=== PATIENT | female | born 1995 | race Caucasian/White ===

== ENCOUNTER 2018-09-21 22:54 | Outpatient (CLI) | payer MEDICAID | END 2018-09-21 22:55 | disposition critical access hospital (66) | LOC: EMS 22:54 | PROVIDERS: ATTEND Surgery | DX: R06.00 Dyspnea, unspecified (principal); R50.9 Fever, unspecified | CPT/HCPCS: A0425; A0427 ==

== ENCOUNTER 2018-09-21 22:57 | Emergency (ER) | payer SELFPAY ==
--- NOTE | 2018-09-21 23:00 | ED Physician Documentation ---
PD HPI DYSPNEA - Stated complaint Stated Complaint: SOA - History obtained from History obtained from: Patient, EMS - History of Present Illness Timing - onset: Enter time (21:00) Timing - details: Gradual onset Pain level now: 0 Improved by: Other (no ameliorating factors) Worsened by: Other (no exacerbating factors) Associated symptoms: No: Fever Recently seen: Not recently seen - Additional information Additional information: c/o dyspnea for several months but worse since 9 PM tonight. BIBA, given albuterol neb en route without improvement. Medics report that patient had clear lungs bilaterally even prior to neb administration and 100% pulse ox room air. Patient says she has seen a doctor for these symptoms, although this doctor practices near [place]. She moved to [facility] approximately 3 weeks ago from [place] where she had been for several months; thus, patient indicates she hasn't seen this doctor since before she moved to [place]. Review of Systems Constitutional: denies: Fever, Chills, Sweats Cardiac: denies: Chest pain / pressure, Palpitations Respiratory: reports: Dyspnea. denies: Cough PD PAST MEDICAL HISTORY - Past Medical History Past Medical History: No - Present Medications Home Medications: Ambulatory Orders Medication Instructions Recorded Confirmed Albuterol 1 unit PO PRN PRN 09/21/18 09/21/18 Fluticasone 44 Mcg [Flovent] 1 unit PO PRN PRN 09/21/18 09/21/18 - Allergies Allergies/Adverse Reactions: Allergies Allergy/AdvReac Type Severity Reaction Status Date / Time No Known Drug Allergies Allergy Verified 09/21/18 23:06 - Living Situation Living Arrangement: reports: At home PD ED PE NORMAL - Vitals Vital signs reviewed: Yes - General General: Alert and oriented X 3, No acute distress, Well developed/nourished - HEENT HEENT: Moist mucous membranes - Neck Neck: Supple, no meningeal sign - Cardiac Cardiac: RRR, No murmur, No gallop, No rub - Respiratory Respiratory: No respiratory distress, Clear bilaterally - Abdomen Abdomen: Soft, Non tender - Derm Derm: Normal color, Warm and dry - Extremities Extremities: No edema Results - Vitals Vitals: Vital Signs - 24 hr 09/21/18 09/22/18 22:59 00:57 Temperature 37.2 C 36.7 C Heart Rate 86 82 Respiratory 18 16 Rate Blood Pressure 114/69 101/70 O2 Saturation 99 99 Oxygen O2 Source Room air - Labs Labs: Laboratory Tests 09/21/18 09/21/18 23:50 23:50 WBC 4.5 L RBC 3.74 L Hgb 11.9 L Hct 34.7 L MCV 92.8 MCH 31.8 H MCHC 34.3 RDW 11.9 L Plt Count 234 MPV 9.3 Neut # (Auto) 2.6 Lymph # (Auto) 1.3 L [place] # (Auto) 0.4 Eos # (Auto) 0.1 Baso # (Auto) 0.0 Absolute Nucleated RBC 0.00 Nucleated RBC % 0.0 Sodium 142 Potassium 3.1 L Chloride 109 Carbon Dioxide 20 L Anion Gap 13.0 BUN 5 L Creatinine 0.6 Estimated GFR (MDRD) 125 Glucose 105 H Calcium 9.8 - Rads (name of study) chest xray Radiology: Prelim report reviewed, See rad report PD MEDICAL DECISION MAKING - ED course Complexity details: reviewed results, re-evaluated patient, considered differential, d/w patient Departure - Departure Disposition: 01 Home, Self Care Clinical Impression: Dyspnea, Hypokalemia Condition: Good Health Concerns: shortness of breath Plan of Treatment: return if worse, follow up with PCP Care Goals: prevention of recurrence Assessment: see diagnosis Instructions: ED Dyspnea Shortness of Breath, ED Potassium Deficiency Follow-Up: [facility] [Provider Group] [facility] [Provider Group] Discharge Date/Time: 09/22/18 01:02
[2018-09-21 23:55] LABS: BASOPHILS % (AUTO) 0.9 %; EOSINOPHILS # (AUTO) 0.1 10^3/uL (0.0-0.7); EOSINOPHILS % (AUTO) 1.8 %; HGB - HEMOGLOBIN 11.9 g/dL (12.0-16.0); LYMPHOCYTES # (AUTO) 1.3 10^3/uL (1.5-3.5); LYMPHOCYTES % (AUTO) 29.7 %; MEAN CORPUSCULAR HEMOGLOBIN 31.8 pg (27.0-31.0); MEAN CORPUSCULAR HGB CONC 34.3 g/dL (32.0-36.0); MEAN CORPUSCULAR VOLUME 92.8 fL (81.0-99.0); MEAN PLATELET VOLUME 9.3 fL (7.9-10.8); MONOCYTES # (AUTO) 0.4 10^3/uL (0.0-1.0); MONOCYTES % (AUTO) 9.4 %; NEUTROPHILS # (AUTO) 2.6 10^3/uL (1.5-6.6); PLT - PLATELET COUNT 234 10^3/uL (130-450); RED BLOOD COUNT 3.74 10^6/uL (4.20-5.40); RED CELL DISTRIBUTION WIDTH 11.9 % (12.0-15.0); WHITE BLOOD COUNT 4.5 x10^3/uL (4.8-10.8)
[2018-09-22 00:04] LABS: CALCIUM 9.8 mg/dL (8.5-10.3); CREATININE 0.6 mg/dL (0.4-1.0)
--- NOTE | 2018-09-22 00:22 | XRAY Report ---
Reason: dyspnea Procedure Date: 09/22/2018 Accession Number: [id number] / [id number] Procedure: XR - Chest 2 View X-Ray CPT Code: 28937 FULL RESULT: EXAM: CHEST RADIOGRAPHY EXAM DATE: 09/22/2018 12:02 AM. CLINICAL HISTORY: Dyspnea. COMPARISON: None. TECHNIQUE: 2 views. FINDINGS: Lungs/Pleura: No alveolar consolidation or pleural effusion seen. No pneumothorax. Mediastinum: Heart and mediastinal contours are unremarkable. Other: Mild scoliosis. IMPRESSION: 1. No acute abnormality seen in the chest. [facility]
[2018-09-22] MEDS ORDERED: POTASSIUM CHLORIDE 20 MEQ TABLET PO STA (00:47)
[2018-09-22 00:57] VITALS: BP 101/70
== END 2018-09-22 01:02 | disposition home or self-care (01) ==
LOC: ED 22:57
DX: R06.00 Dyspnea, unspecified (principal); E87.6 Hypokalemia
CPT/HCPCS: 36415; 71046; 80048; 85025; 99283; 99284